=== PATIENT | male | born 1985 | race Caucasian/White ===

== ENCOUNTER 2019-09-13 21:12 | Emergency (ER) | payer OTHER ==
[2019-09-13] MEDS ORDERED: hydrOXYzine HCL 25 MG TAB ONE (21:54)
[2019-09-13 22:01] LABS: Absolute Lymphocytes (CBC) 3.2 K/uL (0.7-4.9); Basophils % 0.4 % (0-1.3); Hematocrit 43.1 % (39.6-49.0); MPV 9.1 fL (7.6-11.3); Protime INR 0.96
[2019-09-13 22:17] LABS: BUN Blood Urea Nitrogen 21 mg/dL (7-18); Bicarbonate 27 mmol/L (21-32); Glucose Level 107 mg/dL (74-106); NT PRO-BNP 10 pg/mL (<125); Potassium 3.5 mmol/L (3.5-5.1); Sodium Level 137 mmol/L (136-145); Troponin (Emerg Dept Use Only) < 0.02 ng/mL (0.0-0.045)
--- NOTE | 2019-09-13 22:29 | ER ---
Nurse's Notes [facility] Name: Greg Harmon Age: 34 yrs Sex: Male : 1985 Arrival Date: 09/13/2019 Time: 21:15 Bed 7 Private MD: Diagnosis: Panic disorder [episodic paroxysmal anxiety] without agoraphobia;Adverse effect of beta-adrenoreceptor antagonists Presentation: 09/13 21:16 Presenting complaint: Patient states: "I'm on blood pressure medicine already and then aa1 I went to the doctor on Saturday and he put me on a drug called metoprolol for my heart rate and since I started taking it I have cold sweats and anxiety attacks, shortness of breath, chest pain.". Transition of care: patient was not received from another setting of care. Onset of symptoms was 2018. Risk Assessment: Do you want to hurt yourself or someone else? Patient reports no desire to harm self or others. Initial Sepsis Screen: Does the patient meet any 2 criteria? No. Patient's initial sepsis screen is negative. Does the patient have a suspected source of infection? No. Patient's initial sepsis screen is negative. Care prior to arrival: None. 21:16 Method Of Arrival: Ambulatory aa1 21:16 Acuity: RIOS 3 aa1 Triage Assessment: 21:21 General: Appears in no apparent distress. comfortable, Behavior is calm, cooperative, aa1 appropriate for age. Pain: Complains of pain in left clavicle and anterior aspect of left upper chest Pain currently is 2 out of 10 on a pain scale. Neuro: Level of Consciousness is awake, alert, obeys commands. Cardiovascular: Patient's skin is warm and dry. Respiratory: Airway is patent Respiratory effort is even, unlabored, Respiratory pattern is regular, symmetrical. Historical: - Allergies: 21:21 No Known Allergies; aa1 - Home Meds: 21:21 metoprolol tartrate 25 mg Oral tab 1 tab 2 times per day [Active]; Chlorthalidone Oral aa1 [Active]; Lisinopril Oral [Active]; atorvastatin oral oral [Active]; - PMHx: 21:21 Hypertension; aa1 - PSHx: 21:21 Tonsillectomy; aa1 - Immunization history:: Flu vaccine is not up to date. - Social history:: Smoking status: Patient uses tobacco products, denies chronic smoking, but will smoke occasionally. - Ebola Screening: : Patient denies travel to an Ebola-affected area in the 21 days before illness onset. Screenin:01 Abuse screen: Denies threats or abuse. Nutritional screening: No deficits noted. jd3 Tuberculosis screening: No symptoms or risk factors identified. Fall Risk IV access (20 points). Ambulatory Aid- None/Bed Rest/Nurse Assist (0 pts). Gait- Normal/Bed Rest/Wheelchair (0 pts) Mental Status- Oriented to own ability (0 pts). Total Nguyen Fall Scale indicates No Risk (0-24 pts). Assessment: 21:58 General: Appears in no apparent distress. uncomfortable, Behavior is calm, cooperative, jd3 appropriate for age, anxious. Pain: Complains of pain in anterior aspect of left upper chest Quality of pain is described as aching, pressure. Neuro: Level of Consciousness is awake, alert, obeys commands, Oriented to person, place, time, situation. Cardiovascular: Reports chest pain, nausea, Capillary refill < 3 seconds Patient's skin is warm and dry. Respiratory: Airway is patent Respiratory effort is even, unlabored, Respiratory pattern is regular, symmetrical, Denies cough, shortness of breath. GI: Abdomen is round non-distended, Reports nausea, Patient currently denies abdominal pain, constipation, diarrhea, vomiting. : No signs and/or symptoms were reported regarding the genitourinary system. EENT: No signs and/or symptoms were reported regarding the EENT system. Derm: Skin is intact, Skin is dry, Skin is normal, Skin temperature is warm. Musculoskeletal: Circulation, motion, and sensation intact. Range of motion: intact in all extremities. 22:30 Reassessment: Patient appears in no apparent distress at this time. Patient and/or jd3 family updated on plan of care and expected duration. Pain level reassessed. Patient is alert, oriented x 3, equal unlabored respirations, skin warm/dry/pink. Patient denies pain at this time. Patient states feeling better. Vital Signs: 21:21 BP 148 / 91; Pulse 96; Resp 18; Temp 98.6; Pulse Ox 96% on R/A; Weight 123.38 kg (R); aa1 Height 6 ft. 0 in. (182.88 cm) (R); Pain 2/10; 22:30 BP 148 / 89; Pulse 95; Resp 20 S; Pulse Ox 96% on R/A; Pain 0/10; jd3 21:21 Body Mass Index 36.89 (123.38 kg, 182.88 cm) aa1 ED Course: 21:15 Patient arrived in ED. jg7 21:19 Triage completed. aa1 21:21 Arm band placed on. aa1 21:23 Miko Crocker PA is PHCP. jr8 21:23 Chon Treadwell MD is Attending Physician. jr8 21:33 Marc Galdamez RN is Primary Nurse. jd3 21:48 Inserted saline lock: 20 gauge in left antecubital area, using aseptic technique. Blood jd3 collected. 22:01 Patient has correct armband on for positive identification. Placed in gown. Bed in low jd3 position. Call light in reach. Side rails up X 1. Adult w/ patient. 22:15 XRAY Chest (1 view) In Process Unspecified. EDMS 22:37 No provider procedures requiring assistance completed. IV discontinued, intact, jd3 bleeding controlled, No redness/swelling at site. Pressure dressing applied. Administered Medications: 21:56 Drug: Atarax 50 mg Route: PO; jd3 22:37 Follow up: Response: No adverse reaction jd3 Outcome: 22:28 Discharge ordered by . jr8 22:37 Discharged to home ambulatory, with family. jd3 22:37 Condition: stable 22:37 Discharge instructions given to patient, family, Instructed on discharge instructions, follow up and referral plans. Demonstrated understanding of instructions, follow-up care. 22:37 Patient left the ED. jd3 Signatures: Dispatcher [employer] EDSC Linda Méndez RN RN aa1 Miko Crocker PA PA jr8 Marc Galdamez RN RN jd3 Ese Cosby jg7 Corrections: (The following items were deleted from the chart) 21:58 21:55 Inserted saline lock: 20 gauge in left antecubital area, using aseptic technique. jd3 Blood collected. jd3
--- NOTE | 2019-09-13 22:29 | EDPHYS ---
Physician Documentation [facility] Name: Greg Harmon Age: 34 yrs Sex: Male : 1985 Arrival Date: 09/13/2019 Time: 21:15 Bed 7 Private MD: ED Physician Chon Treadwell HPI: 09/13 21:34 This 34 yrs old Male presents to ER via Ambulatory with complaints of Anxiety.jr8 21:34 Patient stated that he was recently started on metoprolol for blood pressure. Stated jr8 that he felt a little anxious yesterday but tonight had what felt like a bad panic attack. Stated that he is worried though because he had cold sweats and left shoulder pain with shortness of breath . Severity of symptoms: At their worst the symptoms were moderate in the emergency department the symptoms are unchanged. The patient has not experienced similar symptoms in the past. The patient has not recently seen a physician. Historical: - Allergies: 21:21 No Known Allergies; aa1 - Home Meds: 21:21 metoprolol tartrate 25 mg Oral tab 1 tab 2 times per day [Active]; Chlorthalidone Oral aa1 [Active]; Lisinopril Oral [Active]; atorvastatin oral oral [Active]; - PMHx: 21:21 Hypertension; aa1 - PSHx: 21:21 Tonsillectomy; aa1 - Immunization history:: Flu vaccine is not up to date. - Social history:: Smoking status: Patient uses tobacco products, denies chronic smoking, but will smoke occasionally. - Ebola Screening: : Patient denies travel to an Ebola-affected area in the 21 days before illness onset. ROS: 21:34 Eyes: Negative for injury, pain, redness, and discharge, ENT: Negative for injury, jr8 pain, and discharge, Neck: Negative for injury, pain, and swelling, Cardiovascular: Negative for chest pain, palpitations, and edema, Abdomen/GI: Negative for abdominal pain, nausea, vomiting, diarrhea, and constipation, Back: Negative for injury and pain, MS/Extremity: Negative for injury and deformity, Skin: Negative for injury, rash, and discoloration, Neuro: Negative for headache, weakness, numbness, tingling, and seizure. 21:34 Respiratory: Positive for shortness of breath. 21:34 Psych: Positive for anxiety. Exam: 21:34 Eyes: Pupils equal round and reactive to light, extra-ocular motions intact. Lids and jr8 lashes normal. Conjunctiva and sclera are non-icteric and not injected. Cornea within normal limits. Periorbital areas with no swelling, redness, or edema. ENT: Nares patent. No nasal discharge, no septal abnormalities noted. Tympanic membranes are normal and external auditory canals are clear. Oropharynx with no redness, swelling, or masses, exudates, or evidence of obstruction, uvula midline. Mucous membranes moist. Neck: Trachea midline, no thyromegaly or masses palpated, and no cervical lymphadenopathy. Supple, full range of motion without nuchal rigidity, or vertebral point tenderness. No Meningismus. Cardiovascular: Regular rate and rhythm with a normal S1 and S2. No gallops, murmurs, or rubs. Normal PMI, no JVD. No pulse deficits. Respiratory: Lungs have equal breath sounds bilaterally, clear to auscultation and percussion. No rales, rhonchi or wheezes noted. No increased work of breathing, no retractions or nasal flaring. Abdomen/GI: Soft, non-tender, with normal bowel sounds. No distension or tympany. No guarding or rebound. No evidence of tenderness throughout. Back: No spinal tenderness. No costovertebral tenderness. Full range of motion. Skin: Warm, dry with normal turgor. Normal color with no rashes, no lesions, and no evidence of cellulitis. MS/ Extremity: Pulses equal, no cyanosis. Neurovascular intact. Full, normal range of motion. Neuro: Awake and alert, GCS 15, oriented to person, place, time, and situation. Cranial nerves II-XII grossly intact. Motor strength 5/5 in all extremities. Sensory grossly intact. Cerebellar exam normal. Normal gait. Vital Signs: 21:21 BP 148 / 91; Pulse 96; Resp 18; Temp 98.6; Pulse Ox 96% on R/A; Weight 123.38 kg (R); aa1 Height 6 ft. 0 in. (182.88 cm) (R); Pain 2/10; 22:30 BP 148 / 89; Pulse 95; Resp 20 S; Pulse Ox 96% on R/A; Pain 0/10; jd3 21:21 Body Mass Index 36.89 (123.38 kg, 182.88 cm) aa1 MDM: 21:32 Patient medically screened. [facility] 22:22 Data reviewed: vital signs, nurses notes, lab test result(s), EKG, radiologic studies, jr8 plain films. Data interpreted: Pulse oximetry: on room air is 96 %. Interpretation: normal. Counseling: I had a detailed discussion with the patient and/or guardian regarding: the historical points, exam findings, and any diagnostic results supporting the discharge/admit diagnosis, lab results, radiology results, the need for outpatient follow up, a family practitioner, to return to the emergency department if symptoms worsen or persist or if there are any questions or concerns that arise at home. ED course: Discussed with patient that since it has coincided with the metoprolol medication that it could be related to that. Recommended stopping the metoprolol only for next 2 days. See he how he does. If it continue to happen less likely the medication. Patient has PCP f/u on Saturday and will discuss this with him as well . 09/13 21:32 Order name: Basic Metabolic Panel; Complete Time: 22:21 09/13 21:32 Order name: CBC with Diff; Complete Time: 22:10 09/13 21:32 Order name: NT PRO-BNP; Complete Time: 22:21 09/13 21:32 Order name: PT-INR; Complete Time: 22:10 09/13 21:32 Order name: Troponin (emerg Dept Use Only); Complete Time: 22:21 09/13 21:32 Order name: XRAY Chest (1 view) [facility] 09/13 21:32 Order name: EKG; Complete Time: 21:39 09/13 21:32 Order name: Cardiac monitoring; Complete Time: 21:33 09/13 21:32 Order name: EKG - Nurse/Tech; Complete Time: 21:56 09/13 21:32 Order name: IV Saline Lock; Complete Time: 21:50 09/13 21:32 Order name: Labs collected and sent; Complete Time: 21:50 09/13 21:32 Order name: O2 Per Protocol; Complete Time: 21:33 09/13 21:32 Order name: O2 Sat Monitoring; Complete Time: 21:33 Administered Medications: 21:56 Drug: Atarax 50 mg Route: PO; jd3 22:37 Follow up: Response: No adverse reaction jd3 Disposition: 22:56 Co-signature as Attending Physician, Chon Treadwell MD. rn Disposition: 09/13/19 22:28 Discharged to Home. Impression: Panic disorder [episodic paroxysmal anxiety] without agoraphobia, Adverse effect of beta-adrenoreceptor antagonists. - Condition is Stable. - Discharge Instructions: Panic Attacks. - Medication Reconciliation Form, Thank You Letter, Antibiotic Education, Prescription Opioid Use form. - Follow up: Private Physician; When: 2 - 3 days; Reason: Recheck today's complaints, Continuance of care, Re-evaluation by your physician. - Problem is new. - Symptoms have improved. Signatures: Dispatcher [employer] Linda Cummings RN RN aa1 Chon Treadwell MD MD rn Roszak, Josh, PA PA jr8 Marc Galdamez RN RN jd3 Corrections: (The following items were deleted from the chart) 22:37 22:28 09/13/2019 22:28 Discharged to Home. Impression: Panic disorder [episodic jd3 paroxysmal anxiety] without agoraphobia; Adverse effect of beta-adrenoreceptor antagonists. Condition is Stable. Forms are Medication Reconciliation Form, Thank You Letter, Antibiotic Education, Prescription Opioid Use. Follow up: Private Physician; When: 2 - 3 days; Reason: Recheck today's complaints, Continuance of care, Re-evaluation by your physician. Problem is new. Symptoms have improved. jr8
[2019-09-14 02:44] VITALS: TEMP 98.6; O2SAT 96
[2019-09-14 02:47] VITALS: BP 148/89
--- NOTE | 2019-09-14 07:43 | EKG ---
Test Date: 2019-09-13 Test Time: 21:57:26 Banking Pin Adjuster: DOMINICK MEASUREMENT RESULTS: Intervals: Rate: 90 KS: 172 QRSD: 94 QT: 360 QTc: 440 [place]: P: 17 KS: 172 QRS: 9 T: 21 INTERPRETIVE STATEMENTS: Normal sinus rhythm Normal ECG No previous ECG available for comparison Electronically Signed On 09-14-19 07:42:12 [employer] by Juan M Parekh
--- NOTE | 2019-09-14 08:15 | RAD REPORT ---
EXAM DESCRIPTION: RAD - Chest Single View - 09/13/2019 10:14 pm CLINICAL HISTORY: DYSPNEA Chest pain. COMPARISON: No comparisons FINDINGS: Portable technique limits examination quality. The lungs are grossly clear. The heart is normal in size. No displaced fractures. IMPRESSION: No acute intrathoracic process suspected.
== END 2019-09-13 22:37 | disposition home or self-care (01) ==
LOC: ER 21:12
DX: F41.0 Panic disorder [episodic paroxysmal anxiety] (principal); T44.7X5A Adverse effect of beta-adrenoreceptor antagonists, initial encounter; I10 Essential (primary) hypertension; Z72.0 Tobacco use
CPT/HCPCS: 36415; 71045; 80048; 83880; 84484; 85025; 85610; 93005; 99284